=== PATIENT | female | born 1940 | race Caucasian/White ===

== ENCOUNTER 2019-01-22 09:42 | Emergency (ER) | payer MEDICARE ==
[~2019-01-22] VITALS: Ht 154.9 cm; Wt 53.2 kg
[2019-01-22] MEDS ORDERED: ZOLP10TA7 PO (09:50)
[2019-01-22] MEDS ORDERED: ALPR0.5T8 PO (09:50)
[2019-01-22] MEDS ORDERED: LEVO25TA9 PO (09:50)
[2019-01-22] MEDS ORDERED: OMEP20 PO (09:50)
[2019-01-22] MEDS ORDERED: DEXL60CA3 PO (09:50)
[2019-01-22] MEDS ORDERED: PREG75 PO ×2 (09:50→11:51)
[2019-01-22] MEDS ORDERED: ONDA-104 PO (09:50)
[2019-01-22] MEDS ORDERED: LORA-999 PO (09:50)
[2019-01-22] MEDS ORDERED: DIPH25 PO (09:50)
[2019-01-22] MEDS ORDERED: HYOS-28 PO (09:50)
[2019-01-22] MEDS ORDERED: HYDR-4455 PO (09:50)
[2019-01-22] MEDS ORDERED: METOCLOPRAMIDE HCL 5 MG/ML 2 ML VIAL IVP ONE (10:45)
[2019-01-22] MEDS ORDERED: SODIUM CHLORIDE 0.9% 1,000 ML IV ONE (10:45)
[2019-01-22 11:32] LABS: BASOPHILS % (AUTO) 0.3 % (0.0-2.0); EOSINOPHILS % (AUTO) 0.1 % (1.0-6.0); HEMATOCRIT 35.6 % (36-46); HEMOGLOBIN 11.6 g/dL (12.0-16.0); LYMPHOCYTES # (AUTO) 0.5 K/uL (1.0-4.8); LYMPHOCYTES % (AUTO) 6.7 % (22.0-44.0); MEAN CORPUSCULAR HEMOGLOBIN 28.8 pg (26.0-34.0); MEAN CORPUSCULAR HGB CONC 32.5 G/dL (31.0-37.0); MEAN CORPUSCULAR VOLUME 89 fL (80-100); MONOCYTES # (AUTO) 0.4 K/uL (0.1-1.0); MONOCYTES % (AUTO) 5.8 % (2.0-9.0); NEUTROPHILS % (AUTO) 87.1 % (40.0-70.0); PLATELET COUNT (AUTO) 129 K/uL (150-450); RED BLOOD CELL COUNT(AUTO) 4.02 MIL/uL (4.00-5.20); RED CELL DISTRIBUTION WIDTH 22.7 % (11.5-14.5)
[2019-01-22 11:43] LABS: ANION GAP 6 mmol/L (8-16); CALCIUM, TOTAL 9.3 mg/dL (8.8-10.5); CARBON DIOXIDE 28 mmol/L (22-29); CHLORIDE 106 mmol/L (98-107); GLOMERULAR FILTR. RATE CALC > 60 mL/min (>60); GLUCOSE,RANDOM 102 mg/dL (70-110); POTASSIUM 3.3 mmol/L (3.5-5.1); SODIUM SERUM 140 mmol/L (136-145); UREA NITROGEN, BLOOD 18 mg/dL (7-18)
[2019-01-22] MEDS ORDERED: HYDROCODONE/ACETAMINOPHEN 5-325 MG TABLET PO ONE (11:45)
[2019-01-22] MEDS ORDERED: LOPERAMIDE HCL 2 MG CAPSULE PO ONE (11:45)
[2019-01-22 11:57] LABS: ALANINE AMINOTRANSFERASE 62 U/L (12-78); ALBUMIN 3.2 g/dL (3.4-5.0); ALKALINE PHOSPHATASE 192 U/L (46-116); ASPARTATE AMINOTRANSFERASE 47 U/L (15-37); BILIRUBIN,TOTAL 0.8 mg/dL (0.1-1.0); LIPASE 140 U/L (73-393); TOTAL PROTEIN, SERUM 6.5 g/dL (6.4-8.2)
[2019-01-22 12:40] VITALS: BP 129/87
== END 2019-01-22 12:59 | disposition home or self-care (01) ==
LOC: EMS 09:44
DX: R11.2 Nausea with vomiting, unspecified (principal); R10.9 Unspecified abdominal pain; R19.7 Diarrhea, unspecified; E03.9 Hypothyroidism, unspecified
CPT/HCPCS: 36415; 80053; 83690; 84484; 85025; 93005; 96361; 96374; 99284; J2765; J7030